=== PATIENT | male | born 1940 | race Caucasian/White ===

== ENCOUNTER 2016-10-05 17:13 | Emergency (ER) | payer OTHER ==
--- NOTE | 2016-10-05 17:32 | EDPHY ---
General Narrative: CHIEF COMPLAINT: Possibly infected pacemaker site HISTORY OF PRESENT ILLNESS: The patient complains of noticing a pain over his pacemaker site and some swelling underneath that about an hour half ago. Pain is completely reproducible with palpation of the skin area. He feels that it is red and swollen. No radiating pain. No sensory complaints. He has had no fever or chills. No chest pain. No shortness of breath. No signs of illness. No trauma to the area. The pacemaker was placed 15 months ago. No other associated complaints or modifying factors. He is concerned about infection and leaking from the device. REVIEW OF SYSTEMS: Ten systems reviewed and are negative unless otherwise noted in the HPI EXAMINATION General Appearance: Alert, no distress Head: normocephalic, atraumatic Eyes: Pupils equal and round, no conjunctival pallor or injection Neck: Normal inspection, supple, non-tender Respiratory: Lungs are clear to auscultation. No wheezing, rhonchi or crackles. Cardiovascular: Regular rate and rhythm. No murmur. Pulses intact distally. Gastrointestinal: Abdomen is soft and nontender Back: non-tender, no bony abnormalities Neurological: A&O, nonfocal, normal gait Skin: Warm and dry, no rash. There is a very mild erythema to the lateral margin of the incision overlying the pacemaker site. No palpable fluctuance. No induration. No erythema or cellulitis. No dehiscence. There is pain upon palpation of the pacemaker incision site. Extremities: Nontender, no pedal edema Psychiatric: Mood and affect normal DIFFERENTIAL DIAGNOSES: Including but not limited to cellulitis, infected incision line, infected pacemaker MDM: 5:30 p.m. Patient complains of infection over his pacemaker site. This has been in place for 15 months. First noted some pain and feels like there is a bump below it to him. On my examination I do not appreciate any fluctuance, erythema, edema, induration or signs of infection of any kind. I will place him on Keflex at his request and have him follow up with his baker helper. I have put a page out to the on-call physician at his request. 5:40 p.m. I discussed case with Dr. Haas, covering for Dr. Huang. He said the patient can follow up in their office for evaluation. I informed the patient of this and they are comfortable with being discharged home. He expresses concern about the device leaking. I reassured him that there is no evidence of leakage on the evaluation or on his vital signs. As he is on a demand pacemaker, his vital signs would be abnormal with a vascular workup. I did offer interrogation he is comfortable with waiting for the 2:00 a.m. dumped the data that automatically occurs at home. He is to return to ER for any worsening pain of the area, worsening redness, lightheadedness or fever. SUPERVISION: This patient was independently evaluated without direct examination by the attending physician. Case was discussed with attending physician. - History Smoking Status: Never smoked - Objective Vital Signs: Initial Vital Signs Temperature (C) 97.5 F 10/05/16 17:17 Heart Rate 77 10/05/16 17:17 Respiratory Rate 18 10/05/16 17:17 O2 Sat (%) 94 10/05/16 17:17 O2 Delivery Mode Room Air Allergies/Adverse Reactions: No Known Allergies Allergy (Verified 10/05/16 17:22) Home Medications: Medication Instructions Recorded Aspirin [Aspirin 81mg (*)] 81 mg PO DAILY 08/04/15 Cholecalciferol Vit D3 [Vitamin D3 1,000 units PO 08/04/15 (*)] Herbals/Supplements -Info Only 1 ea PO DAILY 08/04/15 Ketoconazole 2% [Nizoral 2% Cream 1 fany TP 08/04/15 (*)] Omeprazole [Prilosec 20 mg] 40 mg PO DAILY 08/04/15 Ondansetron Odt [Zofran Odt 4 mg 4 mg PO Q4 08/04/15 (*)] Tamsulosin HCl [Flomax 0.4 MG (*)] 0.4 mg PO DAILY PRN 08/04/15 Acetaminophen [Tylenol 325mg (*)] 325 - 650 mg PO Q4 PRN #0 tab 08/18/15 Atorvastatin Calcium [Lipitor 20 20 mg PO DAILY #90 tab 08/18/15 mg (*)] Metoprolol Tartrate [Lopressor 25 12.5 mg PO BID #0 tab 08/18/15 mg (*)] Cephalexin [Keflex (*)] 500 mg PO TID #30 cap 10/05/16 Valsartan 10/05/16 Departure - Departure Disposition: Home, Routine, Self-Care Clinical Impression: Cellulitis of chest wall Condition: Good Instructions: Cellulitis (ED) Additional Instructions: Keflex as discussed. Follow up with Dr. Huang for definitive care. Referrals: Rupa Raman MD [Primary Care Provider] - As per Instructions German Huang MD [Medical Doctor] - As per Instructions Prescriptions: Cephalexin [Keflex (*)] 500 mg PO TID #30 cap
[2016-10-05 18:04] VITALS: BP 162/102; PULSE 64; RESP 20; TEMP 98.2; O2SAT 93
== END 2016-10-05 18:04 | disposition home or self-care (01) ==
DX: L03.313 Cellulitis of chest wall (principal); Z79.82 Long term (current) use of aspirin

== ENCOUNTER → 2017-05-03 | Outpatient (CLI) | payer OTHER | LOC: FIMAGING 15:26 | PROVIDERS: ATTEND Family Medicine | DX: S62.611A Displaced fracture of proximal phalanx of left index finger, initial encounter for closed fracture (principal) ==

== ENCOUNTER → 2017-05-12 | Outpatient (CLI) | payer OTHER | LOC: FIMAGING 13:19 | PROVIDERS: ATTEND Family Medicine | DX: N62 Hypertrophy of breast (principal); N64.4 Mastodynia | CPT/HCPCS: 76641; G0204 ==

== ENCOUNTER → 2017-05-16 | Outpatient (CLI) | payer OTHER | LOC: BHFA 15:30 | PROVIDERS: ATTEND Internal Medicine Cardiovascular Disease | DX: R06.00 Dyspnea, unspecified (principal); D64.9 Anemia, unspecified ==

== ENCOUNTER 2017-11-10 07:04 | Observation (INO) | payer OTHER ==
--- NOTE | 2017-11-09 15:53 | GHP ---
[f rep st] PREOP HISTORY AND PHYSICAL DATE OF ADMISSION: 11/10/2017 HISTORY OF PRESENT ILLNESS: This is a 77-year-old gentleman who presented with episodes of gross hem aturia, and on endoscopy, it appeared that this was coming from the inflamed prostate. He has been h aving intermittent urinary obstruction. CT scan had been done because the hematuria showed nonenhanc ing bilateral renal cysts, enlarged prostate indenting the bladder base, and thickened bladder wall. He had had a transrectal ultrasound of the prostate that revealed some prostatic calculi between his peripheral and central zones. He had a large intravesical lobe of the prostate and his prostate vol ume was 127 g with a PSA density of 0.09. His total PSA was 11.1. At the present time, he is admitt ed for a TURP. He also has had some old clot in the bladder that could be a partial stone, and that will be assessed and evacuated, and he has +4 trabeculation with diverticula on the cystoscopy of his bladder. PAST MEDICAL HISTORY: Bladder outlet obstruction secondary to BPH, elevated PSA, reflux, history of heart disease, hypercholesterolemia, hypertension. PAST SURGICAL HISTORY: Angioplasty, cystoscopy, cardiac bypass, inguinal hernia, pacemaker, and pros mayes biopsy. MEDICATIONS: Aspirin, atorvastatin, Bystolic, calcium, ondansetron, tamsulosin, valsartan. ALLERGIES: Levaquin. FAMILY HISTORY: Heart disease. SOCIAL HISTORY: Moderate alcohol consumption. Nonsmoker. REVIEW OF SYSTEMS: CARDIOVASCULAR/RESPIRATORY: He has dyspnea on exertion. GENITOURINARY: He has frequency and nocturia. SKIN: Noncontributory. NEUROLOGIC: He denies tingling, numbness, or muscu lar weakness. MUSCULOSKELETAL: He denies bone or back pain. HEMATOLOGIC/LYMPHATIC: He admits to e asy bruising and easy bleeding. PHYSICAL EXAM: VITAL SIGNS: On admission, vital signs stable. CHEST: Clear. HEART: Regular rate and rhythm and rhythm. ABDOMEN: Soft. GENITOURINARY: He has a greater than 70 g prostate that is enlarged and consistency normal. LOWER EXTREMITIES: Normal. ASSESSMENT AND PLAN: At the present time, he is admitted for a transurethral resection of prostate. Indications, complications, options have been discussed. Written and verbal consent was obtained. /[id number]/MODL
[2017-11-10] MEDS ORDERED: ceFAZolin 2 GM/SWFI 2 GM/20 ML SYR IVP ONE (07:07)
--- NOTE | 2017-11-10 07:07 | PDHPUP ---
History & Physical Update H&P update statement: This history and physical update is based on an assessment of the patient which was completed after admission or registration (within 24 hours), but prior to the surgery/procedure. H&P update: H&P reviewed & patient examined
[2017-11-10] MEDS ORDERED: LR 1,000 ML IV ONE (08:10)
--- NOTE | 2017-11-10 08:56 | PDANEPAE ---
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 HX OF IRON DEFICIENCY ANEMIA S/P CABG. - Pulmonary History Hx COPD: No Hx Asthma/Reactive Airway Disease: No Hx Recent Upper Respiratory Infection: No Hx Oxygen in Use at Home: Yes Hx Sleep Apnea: Yes Sleep Apnea Screening Result - Last Documented: Positive Pulmonary History Comment: LINA -USES 2L NC FOR SLEEP - Neurologic History Hx Cerebrovascular Accident: No Hx Seizures: No Hx Dementia: No - Endocrine History Hx Diabetes: No - Renal History Hx Renal Disorders: Yes Renal History Comment: BPH- BLOOD IN URINE - Liver History Hx Hepatic Disorders: No - Neurological & Psychiatric Hx Hx Neurological and Psychiatric Disorders: No - Cancer History Hx Cancer: Yes Cancer History Comment: ONLY SKIN CA - Congenital Disorder History Hx Congenital Disorders: No - GI History Hx Gastrointestinal Disorders: Yes Gastrointestinal History Comment: HIATAL HERNIA, NAUSEA W/REFLUX - Other Health History Other Health History: NONE - Chronic Pain History Chronic Pain: No - Surgical History Prior Surgeries: PACEMAKER INSERTION 2-16. PERICARDIAL WINDOW 2-16. CABG X3 1- 16. BILAT INGUINAL HERNIA REPAIRS ANE Review of Systems Review of systems is: negative Review of Systems: - Exercise capacity METS (RN): 4 METS - Pacemaker Pacemaker Type: Permanent Pacer/Defib Pacemaker Chain Pegger: [email or web address] Pacemaker Model: ELUNA 8 Date Pacemaker Last Checked: Aug-REMOTE ANE Patient History - Allergies Allergies/Adverse Reactions: ciprofloxacin [From Cipro] Allergy (Verified 11/07/17 12:39) Other-Enter Comments - Home Medications Home medications: home medication list seen and reviewed Home Medications: Aspirin [Aspirin 81mg (*)] 81 mg PO DAILY 08/04/15 [Last Taken 08/04/15 09:00] Cholecalciferol Vit D3 [Vitamin D3 (*)] 1,000 units PO HS 08/04/15 [Last Taken 08/03/15 21:00] Herbals/Supplements -Info Only 1 ea PO DAILY 08/04/15 [Last Taken Unknown] Omeprazole [Prilosec 20 mg] 40 mg PO DAILY 08/04/15 [Last Taken 08/03/15 09:00] Ondansetron Odt [Zofran Odt 4 mg (*)] 4 mg PO Q4 08/04/15 [Last Taken 08/04/15 14:00] Tamsulosin HCl [Flomax 0.4 MG (*)] 0.4 mg PO DAILY PRN 08/04/15 [Last Taken ] Valsartan 10/05/16 [Last Taken Unknown] Bystolic 5 mg (*) 11/07/17 [Last Taken Unknown] - NPO status NPO Status: no food or drink >8 hours NPO Since - Liquids (Date): 11/09/17 NPO Since - Liquids (Time): 08:51 NPO Since - Solids (Date): 11/09/17 NPO Since - Solids (Time): 21:00 - Anes Hx Anes Hx: no prior problems - Smoking Hx Smoking Status: Never smoked ANE Labs/Vital Signs - Vital Signs Blood Pressure: 169/106 Heart Rate: 79 Respiratory Rate: 16 O2 Sat (%): 92 Height: 167.64 cm Weight: 79.379 kg ANE Physical Exam - Airway Neck exam: FROM Mallampati Score: Class 1 Mouth exam: normal dental/mouth exam - Pulmonary Pulmonary: no respiratory distress - Cardiovascular Cardiovascular: regular rate and rhythym - ASA Status ASA Status: III ANE Anesthesia Plan Anesthesia Plan: general endotracheal anesthesia
[2017-11-10] MEDS ORDERED: PROPOFOL 200 MG/20 ML VIAL ONE (09:12)
[2017-11-10] MEDS ORDERED: fentaNYL 100 MCG/2 ML INJ ONE (09:12)
[2017-11-10] MEDS ORDERED: LIDOCAINE 2% JELLY 20 ML (UROJECT) ONE (09:35)
[2017-11-10] MEDS ORDERED: OPIUM/BELLADONNA ALKALO SUPP PR PRN (10:33)
[2017-11-10] MEDS ORDERED: ZOLPIDEM TARTRATE 5 MG TAB PO PRN (10:34)
[2017-11-10] MEDS ORDERED: ACETAMINOPHEN 325 MG TAB PO PRN (10:34)
[2017-11-10] MEDS ORDERED: ONDANSETRON DISINTEGRATING 4 MG TAB PO PRN ×2 (10:34→22:39)
[2017-11-10] MEDS ORDERED: ONDANSETRON 4 MG/2 ML VIAL IVP PRN ×2 (10:34→10:44)
--- NOTE | 2017-11-10 10:38 | POSTOPPROG ---
Post Op Note Date of Operation: 11/10/17 Surgeon: Johnny Gaines Anesthesiologist: Warm Anesthesia: LMA Pre-op Diagnosis: bph Procedure: turp Inf/Abcess present in the surg proc area at time of surgery?: No EBL: 50-100 Drains: Other (catheter) Specimen(s): specimen and dictated
--- NOTE | 2017-11-10 10:42 | GOP ---
[f rep st] OPERATIVE REPORT DATE OF OPERATION: 11/10/2017 SURGEON: Johnny Gaines MD PREOPERATIVE DIAGNOSIS: Hemorrhagic benign prostatic hyperplasia with obstruction. POSTOPERATIVE DIAGNOSIS: Hemorrhagic benign prostatic hyperplasia with obstruction. PROCEDURE PERFORMED: Transurethral resection of the prostate. FINDINGS: SPECIMENS: Sent to pathology. ESTIMATED BLOOD LOSS: Less than average. DESCRIPTION OF PROCEDURE: Ever underwent general anesthesia, prepped and draped in normal steri le fashion in dorsal lithotomy position. On the endoscopy had +3 to 4 trabeculation of the bladder. He had big bullous edema and an intravesical lobe of the prostate that was inflammatory. At that poi nt, I began the procedure with the bipolar by taking down the intravesical lobe, the right lateral lo be, then the right portion of the posterior lobe, left lateral lobe and left portion of the posterior lobe resected. Bladder was Ellik'd free of all chips and clots. Visualization revealed the uretera l orifices preserved. No trauma to the bladder. External sphincter and verumontanum preserved. Afte r Elliking the bladder free of chips, Uro-Jet placed in the urethra and a 22 three-way catheter passe d in the bladder, 90 cc balloon inflated, traction placed, and irrigated clear. He will be admitted f or postoperative care. No complications encountered. /[id number]/MODL
[2017-11-10] MEDS ORDERED: fentaNYL 100 MCG/2 ML INJ IVP PRN (10:44)
[2017-11-10] MEDS ORDERED: PROMETHAZINE HCL 25 MG/ML INJ IVP PRN (10:44)
[2017-11-10] MEDS ORDERED: NALOXONE HCL 0.4 MG/ML INJ IVP PRN (10:44)
--- NOTE | 2017-11-10 10:44 | POSTANESTH ---
Post Anesthetic Evaluation Cardiovascular Status: Normal, Stable Respiratory Status: Normal, Stable Level of Consciousness/Mental Status: Can Participate in Eval Pain Control: Adequate, Prn Tx Ordered Nausea/Vomiting Control: Adequate, Prn Tx Ordered Complications Possibly Related to Anesthesia: None Noted
[2017-11-10] MEDS: POTASSIUM Cl (KCl) 10 MEQ in D5W 1/2 NS 1,000 ML IV SCH (12:22)
[2017-11-10] MEDS: HYDROCODONE/APAP 5/325 TAB PO PRN ×3 (14:27→22:49)
[2017-11-11] MEDS: HYDROCODONE/APAP 5/325 TAB PO PRN ×2 (04:06→08:26)
[2017-11-11] MEDS: POTASSIUM Cl (KCl) 10 MEQ in D5W 1/2 NS 1,000 ML IV SCH (05:47)
[2017-11-11] MEDS ORDERED: ASPIRIN 81 MG CHEWABLE TAB PO SCH (09:00)
[2017-11-11] MEDS ORDERED: ATORVASTATIN CALCIUM 20 MG TAB PO SCH (09:00)
[2017-11-11] MEDS ORDERED: PANTOPRAZOLE SODIUM 40 MG TAB PO SCH (09:00)
[2017-11-11] MEDS ORDERED: Herbals/Supplements -Info Only PO SCH (09:00)
[2017-11-11] MEDS ORDERED: NEBIVOLOL HCL 5 MG TAB PO SCH (09:00)
[2017-11-11 11:42] VITALS: BP 127/68
[2017-11-11] MEDS ORDERED: CHOLECALCIFEROL VIT D3 1,000 UNITS TAB PO SCH (21:00)
[2017-11-11] MEDS ORDERED: VALSARTAN 160 MG TAB PO SCH (21:00)
== END 2017-11-11 14:24 ==
LOC: F1N 07:04 → INTOOBSV 07:04 → F1N 11:44
PROVIDERS: ADMIT Specialist; ATTEND Specialist
PROC: 0VT08ZZ Resection of Prostate, Via Natural or Artificial Opening Endoscopic (ICD-10-PCS; principal; 2017-11-10 09:00)
DX: N40.1 Benign prostatic hyperplasia with lower urinary tract symptoms (principal); N32.0 Bladder-neck obstruction; R31.0 Gross hematuria; R97.20 Elevated prostate specific antigen [PSA]; K21.9 Gastro-esophageal reflux disease without esophagitis; I25.10 Atherosclerotic heart disease of native coronary artery without angina pectoris; E78.00 Pure hypercholesterolemia, unspecified; I10 Essential (primary) hypertension; G47.33 Obstructive sleep apnea (adult) (pediatric); Z82.49 Family history of ischemic heart disease and other diseases of the circulatory system; Z95.1 Presence of aortocoronary bypass graft; Z95.0 Presence of cardiac pacemaker
CPT/HCPCS: 52601; J0690; J2704; J3010; J3480

== ENCOUNTER → 2018-04-03 | Outpatient (CLI) | payer OTHER | LOC: BHFA 11:15 | PROVIDERS: ATTEND Nurse Practitioner Adult Health | DX: R07.89 Other chest pain (principal); I48.91 Unspecified atrial fibrillation; I25.10 Atherosclerotic heart disease of native coronary artery without angina pectoris; I10 Essential (primary) hypertension; G47.30 Sleep apnea, unspecified; Z95.0 Presence of cardiac pacemaker; Z95.1 Presence of aortocoronary bypass graft; Z95.5 Presence of coronary angioplasty implant and graft ==

== ENCOUNTER → 2018-04-28 | Outpatient (CLI) | payer OTHER | LOC: BHFA 10:45 | PROVIDERS: ATTEND Internal Medicine | DX: I48.91 Unspecified atrial fibrillation (principal); I25.10 Atherosclerotic heart disease of native coronary artery without angina pectoris ==

== ENCOUNTER → 2018-06-22 | Outpatient (CLI) | payer OTHER ==
[~2018-06-22] MED LIST: GADOBUTROL 10 ML VIAL IVP ONE
== END ==
LOC: FIMAGING 08:46
PROVIDERS: ATTEND Family Medicine
DX: G31.9 Degenerative disease of nervous system, unspecified (principal); R94.02 Abnormal brain scan; J32.0 Chronic maxillary sinusitis
CPT/HCPCS: 70553; A9585; 82565-PO

== ENCOUNTER → 2018-07-18 | Outpatient (CLI) | payer OTHER | LOC: BHFA 15:30 | PROVIDERS: ATTEND Internal Medicine Cardiovascular Disease | DX: G45.9 Transient cerebral ischemic attack, unspecified (principal) ==